=== PATIENT | male | born 1990 | race American Indian/Alaskan Native ===

== ENCOUNTER 2018-01-24 09:15 | Emergency (ER) | payer BC ==
[2018-01-24 09:38] VITALS: BP 123/71
--- NOTE | 2018-01-24 11:56 | Emergency Department Report ---
ED Back Pain/Injury HPI - General Chief Complaint: Back Pain/Injury Stated Complaint: BACK, NECK PAIN FOR 2 DAYS Time Seen by Provider: 01/24/18 11:39 Source: patient Limitations: No Limitations - History of Present Illness Initial Comments: Patient is 27 years old male with no significant past medical history. Patient presented to the ER complaining of back pain for the last 2 years. Patient stated that he worked for [email or web address] and he do a lot of lifting. His pain is usually worse at the end of the shift and became very stiff. She denied any weakness, numbness or tingling sensation. No fever, no bowel or bladder incontinence. MD Complaint: back pain -: year(s) Place: work Severity: mild Consistency: intermittent Associated Symptoms: denies other symptoms - Related Data Allergies Allergy/AdvReac Type Severity Reaction Status Date / Time No Known Allergies Allergy Unverified 01/24/18 09:38 ED Review of Systems ROS: Stated complaint: BACK, NECK PAIN FOR 2 DAYS Other details as noted in HPI Comment: All other systems reviewed and negative Constitutional: denies: chills, fever Respiratory: denies: cough, orthopnea, shortness of breath, SOB with exertion, SOB at rest, wheezing Cardiovascular: denies: chest pain, palpitations, dyspnea on exertion, orthopnea Gastrointestinal: denies: abdominal pain, nausea Genitourinary: denies: frequency Musculoskeletal: denies: back pain ED Past Medical Hx - Past Medical History Hx GERD: Yes - Surgical History Additional Surgical History: Inguinal hernia repair 2016 - Social History Smoking Status: Current Some Day Smoker Substance Use Type: Marijuana ED Physical Exam - General Limitations: No Limitations General appearance: alert, in no apparent distress - Head Head exam: Present: atraumatic, normocephalic, normal inspection - Eye Eye exam: Present: normal appearance - ENT ENT exam: Present: normal exam, normal orophraynx, mucous membranes moist - Neck Neck exam: Present: normal inspection, full ROM. Absent: tenderness, meningismus, lymphadenopathy - Respiratory Respiratory exam: Present: normal lung sounds bilaterally. Absent: respiratory distress, wheezes, rales, rhonchi, stridor, chest wall tenderness, accessory muscle use, decreased breath sounds, prolonged expiratory - Cardiovascular Cardiovascular Exam: Present: regular rate, normal rhythm, normal heart sounds - GI/Abdominal GI/Abdominal exam: Present: soft, normal bowel sounds. Absent: distended, tenderness, guarding, rebound, rigid, organomegaly, mass, bruit, pulsatile mass , hernia - Extremities Exam Extremities exam: Present: normal inspection, full ROM, normal capillary refill - Back Exam Back exam: Present: normal inspection, full ROM, muscle spasm. Absent: tenderness, CVA tenderness (R), CVA tenderness (L), paraspinal tenderness, vertebral tenderness, rash noted - Neurological Exam Neurological exam: Present: alert, oriented X3, CN II-XII intact, normal gait, reflexes normal - Skin Skin exam: Present: warm, intact, normal color ED Course Vital Signs 01/24/18 09:33 Temperature 98.6 F Pulse Rate 71 Respiratory 16 Rate Blood Pressure 123/71 O2 Sat by Pulse 100 Oximetry Critical care attestation.: If time is entered above; I have spent that time in minutes in the direct care of this critically ill patient, excluding procedure time. ED Disposition Clinical Impression: Back pain Disposition: DC-01 TO HOME OR SELFCARE Is pt being admited?: No Condition: Stable Instructions: Low Back Strain (ED), Muscle Spasm (ED) Referrals: PRIMARY CARE, [Primary Care Provider] - 3-5 Days
== END 2018-01-24 12:05 | disposition home or self-care (01) ==
LOC: ED 09:15
DX: M54.9 Dorsalgia, unspecified (principal); K21.9 Gastro-esophageal reflux disease without esophagitis; F17.200 Nicotine dependence, unspecified, uncomplicated; F12.10 Cannabis abuse, uncomplicated
CPT/HCPCS: 99281